=== PATIENT | male | born 2000 | race American Indian/Alaskan Native ===

== ENCOUNTER 2019-07-24 15:29 | Emergency (ER) | payer OTHER ==
[~2019-07-24] VITALS: Ht 182.9 cm; Wt 79.4 kg
[2019-07-24] MEDS ORDERED: TESSALON PERLE100 MG PO (17:46)
[2019-07-24] MEDS ORDERED: DOXYCYCLINE HY100 MG PO (17:46)
--- OUTSIDE RECORDS SUMMARY | 2019-07-24 18:02 | XMS ---
PreManage Notification: CHERELLE LONG Security Pta Events No recent Security Events currently on file CRITERIA MET - [facility] - 2 Visits in 30 Days CARE PROVIDERS There are no care providers on record at this time. [facility] has no Care Guidelines for this patient. [facility] VISIT COUNT (12 MO.) [address] TOTAL 6 NOTE: Visits indicate total known visits. ED/C VISIT TRACKING (12 MO.) 07/24/2019 15:30 [facility] [place] TYPE: Emergency COMPLAINT: - SOB, CHEST PAIN 07/21/2019 09:06 [facility] [place] TYPE: Emergency COMPLAINT: - SHORTNESS OF BREATH 06/09/2019 23:09 [facility] TYPE: Emergency COMPLAINT: - pain with urination 04/12/2019 16:56 [facility] TYPE: Emergency COMPLAINT: - SORE THROAT 10/10/2018 17:38 [facility] TYPE: Emergency 08/10/2018 21:32 [facility] TYPE: Emergency DIAGNOSES: - White spots on testicles - Spots on Testicles - Pseudofolliculitis barbae INPATIENT VISIT TRACKING (12 MO.) No inpatient visits to display in this time frame [email or web address]
== END 2019-07-24 18:39 | disposition home or self-care (01) ==
LOC: ED 15:29
DX: J18.9 Pneumonia, unspecified organism (principal)
CPT/HCPCS: 71046; 99285-25